=== PATIENT | male | born 1975 | race Caucasian/White ===

== ENCOUNTER 2022-03-06 00:04 | Emergency (ER) | payer MEDICAID ==
[~2022-03-06] VITALS: Ht 182.9 cm; Wt 84.1 kg
[2022-03-06 00:10] VITALS: BP 125/74
[2022-03-06] MEDS ORDERED: SULF1TAB49 PO (01:12)
[2022-03-06] MEDS ORDERED: PRED20TA PO (01:12)
[2022-03-06] MEDS ORDERED: CEPH-585 PO (01:12)
== END 2022-03-06 01:20 | disposition home or self-care (01) ==
LOC: ER 00:07
DX: M25.461 Effusion, right knee (principal); L08.9 Local infection of the skin and subcutaneous tissue, unspecified; M25.561 Pain in right knee; Z79.2 Long term (current) use of antibiotics; Z79.899 Other long term (current) drug therapy
CPT/HCPCS: 73564; 99283

== ENCOUNTER 2022-09-04 02:13 | Emergency (ER) | payer MEDICAID ==
[~2022-09-04] VITALS: Ht 182.9 cm; Wt 81.8 kg
[~2022-09-04 02:13] MED LIST: CEPH-585 PO
[2022-09-04 02:15] VITALS: BP 144/93
[2022-09-04] MEDS ORDERED: ibuprofen tablet 400 MG TABLET PO ONE (06:25)
[2022-09-04] MEDS ORDERED: acetaminophen 325mg tablet PO ONE (06:25)
== END 2022-09-04 07:37 | disposition home or self-care (01) ==
LOC: ER 02:14
DX: S52.502A Unspecified fracture of the lower end of left radius, initial encounter for closed fracture (principal); V29.888A Rider (driver) (passenger) of other motorcycle injured in other specified transport accidents, initial encounter; Y93.89 Activity, other specified; Y92.89 Other specified places as the place of occurrence of the external cause; Y99.8 Other external cause status
CPT/HCPCS: 29125; 73110; 99283; A4565